=== PATIENT | female | born 1935 | race Caucasian/White ===

== ENCOUNTER 2018-03-29 01:54 | Outpatient (CLI) | payer MEDICARE ==
[~2018-03-29 01:54] MED LIST: ACET-75 PO; ASPI81TA52 PO; BIOT800T PO; CHOL100046 PO; CINN1CAP PO; IBUP-24 PO; LISI2.5T2 PO; MAGN400C PO; METF-438 PO; MULT1TAB74 PO; OMEG1CAP46 PO; OMEP20CA10 PO; OSC500T PO; PRAV40TA PO
== END 2018-03-29 23:59 | disposition home or self-care (01) ==
LOC: DIABETIC 01:54
PROVIDERS: ATTEND Internal Medicine
DX: E11.9 Type 2 diabetes mellitus without complications (principal); I11.0 Hypertensive heart disease with heart failure; I50.9 Heart failure, unspecified; Z79.82 Long term (current) use of aspirin; Z79.84 Long term (current) use of oral hypoglycemic drugs; Z91.018 Allergy to other foods
CPT/HCPCS: G0108

== ENCOUNTER 2018-09-17 07:59 | Emergency (ER) | payer MEDICARE ==
[~2018-09-17] VITALS: Ht 149.9 cm; Wt 53.6 kg
[2018-09-17 08:08] VITALS: BP 131/65
[2018-09-17] MEDS ORDERED: DOXYCYCLINE 100MG CAPSULE PO STA (09:18)
[2018-09-17] MEDS ORDERED: ondansetron 4mg rapidly disintigrating tab PO ONE (09:20)
[2018-09-17] MEDS ORDERED: TETanus/Pertussis (Acell)/Diphther VAC/PF (Tdap-Adult) 0.5ml syringe IM ONE (09:20)
== END 2018-09-17 10:05 | disposition home or self-care (01) ==
LOC: ER 08:00
DX: S00.06XA Insect bite (nonvenomous) of scalp, initial encounter (principal); E11.9 Type 2 diabetes mellitus without complications; Z79.82 Long term (current) use of aspirin; Z88.6 Allergy status to analgesic agent; Z88.8 Allergy status to other drugs, medicaments and biological substances; W57.XXXA Bitten or stung by nonvenomous insect and other nonvenomous arthropods, initial encounter; Y93.89 Activity, other specified; Y92.89 Other specified places as the place of occurrence of the external cause; Y99.8 Other external cause status
CPT/HCPCS: 90471; 90715; 99283

== ENCOUNTER 2018-12-12 03:54 | Outpatient (CLI) | payer MEDICARE ==
[~2018-12-12 03:54] MED LIST changes: -OMEP20CA10 PO; +OMEP20CA11 PO
== END 2018-12-12 23:59 | disposition home or self-care (01) ==
LOC: DIABETIC 03:54
PROVIDERS: ATTEND Student in an Organized Health Care Education/Training Program
DX: E11.65 Type 2 diabetes mellitus with hyperglycemia (principal); I10 Essential (primary) hypertension; Z79.84 Long term (current) use of oral hypoglycemic drugs; Z79.899 Other long term (current) drug therapy; Z79.82 Long term (current) use of aspirin; Z88.8 Allergy status to other drugs, medicaments and biological substances; Z88.5 Allergy status to narcotic agent; Z91.018 Allergy to other foods; Z91.048 Other nonmedicinal substance allergy status
CPT/HCPCS: G0108

== ENCOUNTER 2019-02-10 07:41 | Emergency (ER) | payer MEDICARE ==
[~2019-02-10] VITALS: Ht 149.9 cm; Wt 54.9 kg
[2019-02-10 07:46] VITALS: BP 138/62
[2019-02-10] MEDS ORDERED: LIDOcaine 1% W/epiNEPHrine 1:100,000 20ml vial SQ ONE (08:00)
[2019-02-10] MEDS ORDERED: AMOX-422 PO (09:03)
[2019-02-10] MEDS ORDERED: amox tr/potassium clavulanate 875/125mg TAB PO ONE (09:05)
== END 2019-02-10 09:46 | disposition home or self-care (01) ==
LOC: ER 07:42
DX: S02.5XXA Fracture of tooth (traumatic), initial encounter for closed fracture (principal); S01.511A Laceration without foreign body of lip, initial encounter; E78.00 Pure hypercholesterolemia, unspecified; I10 Essential (primary) hypertension; E11.9 Type 2 diabetes mellitus without complications; Z98.890 Other specified postprocedural states; Z88.5 Allergy status to narcotic agent; Z79.899 Other long term (current) drug therapy; Z79.82 Long term (current) use of aspirin; Z79.84 Long term (current) use of oral hypoglycemic drugs; W10.8XXA Fall (on) (from) other stairs and steps, initial encounter; Y93.01 Activity, walking, marching and hiking; Y92.89 Other specified places as the place of occurrence of the external cause; Y99.8 Other external cause status
CPT/HCPCS: 12051; 70450; 99284

== ENCOUNTER → 2020-10-15 | Day surgery (SDC) | payer MEDICARE ==
[2020-10-10 16:31] LABS: BASOPHILS # (AUTO) 0.1 X10'3 (0-0.2); BASOPHILS % (AUTO) 1.4 % (0-1); EOSINOPHILS # (AUTO) 0.2 X10'3 (0-0.9); EOSINOPHILS % (AUTO) 4.7 % (0-6); LYMPHOCYTES # (AUTO) 0.8 X10'3 (1.1-4.8); LYMPHOCYTES % (AUTO) 16.1 % (21-51); MEAN CORPUSCULAR HEMOGLOBIN 34.2 PG (27.0-31.0); MEAN CORPUSCULAR VOLUME 100.5 FL (78-98); MEAN PLATELET VOLUME 7.5 FL (7.4-10.4); MONOCYTES # (AUTO) 0.3 X10'3 (0-0.9); NEUTROPHILS # (AUTO) 3.5 X10'3 (1.8-7.7); NEUTROPHILS % (AUTO) 70.8 % (42-75); PRE OP HEMATOCRIT 36.1 % (35.0-45.0); PRE OP HEMOGLOBIN 12.3 g/dL (12.0-16.0); PRE OP PLATELET COUNT 249 X10'3 (140-440); RED BLOOD COUNT 3.59 X10'6 (4.20-5.60)
[2020-10-10 16:34] LABS: CLARITY,URINE CLEAR (Clear); COLOR,URINE YELLOW (Yellow); GLUCOSE, URINE NEGATIVE (Neg); KETONES,URINE TRACE mg/dl (Neg); LEUKOCYTE ESTERASE ,URINE NEGATIVE (Neg); NITRITES, URINE NEGATIVE (Neg); OCCULT BLOOD,URINE TRACE-INTACT (Neg); PH,URINE 5.5 (4.8-8.0); PROTEIN,URINE NEGATIVE (Neg); UROBILINOGEN,URINE 0.2 E.U/dL (0.2-1.0)
[2020-10-10 16:47] LABS: UA COLLECTION TYPE NON-SPECIFIED
[2020-10-10 16:48] LABS: BACTERIA,URINE NONE SEEN /HPF (Neg); MUCUS STRANDS FEW /LPF (Neg); RBC,URINE 0-2 /HPF (0-2); SQUAMOUS EPITHELIAL CELL,UR FEW /LPF (FEW); WBC,URINE 0-4 /HPF (0-4)
[2020-10-10 16:55] LABS: ALBUMIN 4.8 G/DL (3.4-5.0); ALBUMIN/GLOBULIN RATIO 1.7 (1.1-1.5); ALKALINE PHOSPHATASE 59 IU/L (46-116); BLOOD UREA NITROGEN 18 MG/DL (7-18); CALCIUM 9.4 MG/DL (8.5-10.1); CHLORIDE 104 MMOL/L (99-107); CREATININE 0.58 MG/DL (0.40-0.90); PRE OP ALT 26 U/L (30-65); PRE OP ANION GAP 6 (8-16); PRE OP AST 26 U/L (10-37); PRE OP BILIRUB, TOTAL 1.8 MG/DL (0.0-1.0); PRE OP GLUCOSE 113 MG/DL (70-104); PRE OP POTASSIUM 3.5 MMOL/L (3.4-5.1); PRE OP SODIUM 143 MMOL/L (135-145); TOTAL CARBON DIOXIDE 32.7 MMOL/L (24-32); TOTAL PROTEIN 7.7 G/DL (6.4-8.2); eGFR > 90 ML/MIN
[~2020-10-15] VITALS: Ht 149.9 cm; Wt 53.5 kg
[2020-10-15] VITALS (13 sets, daily range): BP systolic 100–138; BP diastolic 42–88
[~2020-10-15] MED LIST changes: -ASPI81TA52 PO; -BIOT800T PO; +BUPIVAcaine/PF 2.5 mg/ml (0.25%) 30ml vial ONE; +FAMO20TA8 PO; +GABA-530 PO; +HYDROmorphone/PF 0.2 MG/ML SYRINGE IV PRN; -IBUP-24 PO; -LISI2.5T2 PO; +LOPE-190 PEG; -MAGN400C PO; +MULT-620 PO; -MULT1TAB74 PO; -OMEP20CA11 PO; +[UNRECOGNIZED DRUG - OTHER] OP; +cefazolin/dext.iso 2gm/100ml IV ONE; +dexamethasone sod phosphate 10mg/ml inj ONE; +famotidine 20mg tablet PO ONE; +fentaNYL /PF 50mcg/ml 5ml ampule ONE; +glycopyrrolate 0.2mg/ml inj ONE; +meperidine/PF 25mg/ml syringe IV PRN; +midazolam 1 mg/ML 2ml injection ONE; +neostigmine methylsulfate 1 MG/ML 10ml vial ONE; +ondansetron/PF 4mg/2ml inj IV PRN; +ondansetron/PF 4mg/2ml inj ONE; +proCHLORperazine 10 MG/2 ml inj IV ONE; +propofol inj 20 ML IV ONE; +ringers solution, lacted 1,000 ML IV SCH; +rocuronium 10mg/ml inj IV ONE; +sevoflurane 250ml liquid IH ONE
--- NOTE | 2020-10-15 12:29 | NUR ---
Received from OR via , accompanied by Anesthesiologist DR POLLARD and report given by Anesthesiolgist. PT PRESENTS WITH PIV 20G LEFT HAND, ABD DRESSING DRY AND INTACT. VSS. Addendum: 10/15/20 at 1240 by Maryellen Gomez RN, RN Amended: Links added.
--- NOTE | 2020-10-15 14:19 | NUR ---
PT DC'D HOME WITH DAUGHTER GAIL. IV RODOLFO'D. PT UP OUT OF BED TO WHEELCHAIR WITH NO PROBLEMS AT THIS TIME. DC INSTRUCTIONS REVIEWD WITH PT AND FAMILY. Addendum: 10/15/20 at 1441 by Maryellen Gomez RN, RN Amended: Links added.
== END | disposition home or self-care (01) ==
LOC: PAS 07:57 → EDSTATUS 10:45
PROVIDERS: ATTEND Surgery
DX: K43.5 Parastomal hernia without obstruction or gangrene (principal); N99.4 Postprocedural pelvic peritoneal adhesions; E11.9 Type 2 diabetes mellitus without complications; G47.30 Sleep apnea, unspecified; I11.0 Hypertensive heart disease with heart failure; I50.32 Chronic diastolic (congestive) heart failure; D64.9 Anemia, unspecified; I27.20 Pulmonary hypertension, unspecified; K21.9 Gastro-esophageal reflux disease without esophagitis; M19.90 Unspecified osteoarthritis, unspecified site; M85.80 Other specified disorders of bone density and structure, unspecified site; I73.00 Raynaud's syndrome without gangrene; Z88.8 Allergy status to other drugs, medicaments and biological substances; Z91.09 Other allergy status, other than to drugs and biological substances; Z88.5 Allergy status to narcotic agent; Z79.84 Long term (current) use of oral hypoglycemic drugs; Z79.899 Other long term (current) drug therapy; Z96.653 Presence of artificial knee joint, bilateral; Z90.710 Acquired absence of both cervix and uterus; Z90.49 Acquired absence of other specified parts of digestive tract; Z98.890 Other specified postprocedural states; Z98.41 Cataract extraction status, right eye; Z98.42 Cataract extraction status, left eye; Z85.828 Personal history of other malignant neoplasm of skin
CPT/HCPCS: 36415; 49654; 80053; 81001; 82948; 85025; C1758; J0780; J1100; J2250; J2405; J2704; J2710; J3010; J3490; A4215; A4618; A6258; J7120